=== PATIENT | male | born 1980 | race Caucasian/White ===

== ENCOUNTER 2025-01-22 14:57 | Outpatient (AMB) | payer OTHER, SELFPAY ==
--- NOTE | 2025-01-22 15:01 | A.OFFPC_ITS ---
Vital Signs 01/22/25 15:04 01/22/25 15:17 01/22/25 15:28 Height 5 ft 9 in Weight 325 lb 4 oz BMI 48.0 BP 160/81 H 133/79 130/82 Blood Pressure Location Lt brachial Lt brachial Lt brachial Position Sitting Sitting Sitting Pulse 88 Pulse Source Pulse Oximeter Temp 98.1 F Temp Source Oral Pulse Oximetry (%) 97 Oxygen Delivery Method Room Air Intake Visit Reasons: CPE Intake Note: New patient visit Automotive Services Manager Required: No Allergies No Known Allergies Allergy (Verified 01/22/25 15:16) Medication List - Last Reconciled 01/22/25 by Rola Short CNP No Known Home Meds Tobacco use date assessed: 01/22/25 Dental Screening Dental Screen Date: 01/22/25 Did you have a dental visit in the last 12 months?: No Did you have a dental problem in the last 6 months where you did not have access to dental care?: No Was dental information given to patient?: Patient declined HPI HPI Comments History of Present Illness Details 44-year-old male presents to establish c are. Prior PCP? - [facility]. Unknown practice Last office visit/CPE/labs - 15 years ago Acute issue(s) - None Past Medical History - Diverticulitis Surgical History - None Family History - Dad: Cardiovascular disease, testicula r cancer, anxiety - MGM: DM - PGM: Cardiovascular disease - MGF: DM Social History - Smokes socially, last time was 2 month s ago, h/o 1ppd x 10 yrs about 8 years ago. Does not vape. Drinks 3-4 beers three times weekly x 8 years. Denies recreational drug use - Has not been making healthy dietary ch oices. Active but does not exercise. Generally sleep well Health maintenance - Last eye exam was with DOT last month. Referred to ophthalmology for routine eye exam - Last dental visit was about10 years ag o; encouraged to schedule an appointment with his dentist for routine dental care - Last Tdap vaccine today was 4 years a go at [facility] - Has not been vaccinated for the flu ; declines vaccination [facility] Medical History (Updated 01/22/25 @ 15:53 by Rola Short CNP) Diverticulitis Family History (Updated 01/22/25 @ 15:47 by Coleen Jc MA) Father Anxiety Cardiovascular disease Testicular cancer Paternal Uncle Anxiety Family/Other Anxiety Maternal Grandmother Diabetes Maternal Grandfather Diabetes Paternal Grandmother Cardiovascular disease Social History Housing: House Alcohol intake: current Patient Tobacco Use Status: Never used Tobacco Years Smoked: 20 e-Cigarette/Vaping Use: Never Used Second Hand Smoke Exposure: No service: No Current occupational status: employed Current occupation: work formen Current occupational exposures/hazards: No Cognitive needs: No Hearing needs: Yes (right eye) Vision needs: No Questionnaire PHQ-9 Over the last 2 weeks, how often have you been bothered by any of the following problems? 1. Little interest or pleasure in doing things: not at all 2. Feeling down, depressed, or hopeless: not at all 3. Trouble falling or staying asleep, or sleeping too much: not at all 4. Feeling tired or having little energy: not at all 5. Poor appetite or overeating: not at all 6. Feeling bad about yourself - or that you are a failure or have let yourself or your family down: not at all 7. Trouble concentrating on things, such as reading the newspaper or watching television: not at all 8. Moving or speaking so slowly that other people could have noticed. Or the opposite - being so fidgety or restless that you have been moving around a lot more than usual: not at all 9. Thoughts that you would be better off or of hurting yourself in some way: not at all Total score: 0 Depression Screening Interpretation: Negative Depression Screening Done: Yes 62907 - PHQ-9 Billing: Yes Source: Developed by Drs. Isac Choi, Rafia Dotson, Tutu Umana and colleagues, with an educational charan from [employer]. Thrive Questionnaire Date Thrive assessed: 01/15/25 I am a: Patient What is your living situation today?: I have a steady place to live Within the past 12 months, did the food you bought not last and you didn't have the money to get more?: Never true Within the past 12 months, did you worry whether your food would run out before you got money to buy more?: Never true Do you have trouble paying for medicines?: No Do you have trouble getting transportation to medical appointments?: No Do you have trouble paying your heating and electricity bill?: No Do you have trouble taking care of your child, family member or friend?: No Do you have trouble with day-to-day activities such as bathing, preparing meals, shopping, managing finances, etc.?: No Are you currently unemployed and looking for a job?: No Are you interested in more education?: I choose not to answer this question Please select the resources that you would like help with: None Currently or been in a relationship where the following occur: No concerns reported THRIVE Score: 0 AUDIT C Alcohol Use Questionnaire (AUDIT-C) 1. How often do you have a drink containing alcohol?: 2-3 times a week 2. How many drinks containing alcohol do you have on a typical day when you are drinking?: 3 or 4 3. How often do you have six or more drinks on one occasion?: Monthly Total Score: 6 Score Reviewed/Action Taken: Yes MICHELA-7 AMB Questionnaire MICHELA-7 Date MICHELA - 7 assessed: 01/22/25 Feeling nervous, anxious, or on edge: 1 = Several days Not being able to stop or control worryin = Several days Worrying too much about different things: 1 = Several days Trouble relaxin = Several days Being so restless that it is hard to sit still: 0 = Not at all Becoming easily annoyed or irritable: 1 = Several days Feeling afraid as if something awful might happen: 1 = Several days Total MICHELA-7 score (0-4 normal; 5-9 mild; 10-14 moderate; 15-21 severe): 6 Source: Developed by Drs. Isac Choi, Rafia Dotson, Tutu Umana and colleagues, with an educational charan from [employer]. MICHELA-7 Assessment Billing MICHELA-7 Assessment Tool: MICHELA-7 Assessment 75721 Review of Systems Const Details: Denies chills, Denies fatigue, Denies fever(s), Denies headache(s) and Denies weakness HEENT Denies change in vision, Denies dizziness, Denies headache(s), Denies hearing loss, Denies nasal congestion, Denies sinus pain, Denies sinus pressure and Denies sore throat Card Denies chest pain, Denies lightheadedness, Denies dyspnea and Denies other (palpitations) Resp Denies cough, Denies dyspnea and Denies wheezing GI Denies abdominal pain, Denies melena, Denies hematochezia, Denies change in bowel habits, Denies dyspepsia and Denies nausea Denies hematuria and Denies dysuria Musc Denies abnormal gait, Denies myalgias, Denies arthralgias, Denies numbness and Denies tingling Skin/Breast Denies rash, Denies unusual bruising and Denies wounds Neuro Denies abnormal gait, Denies dizziness, Denies headache(s), Denies memory loss, Denies numbness, Denies Sensory deficit (Neuro), Denies tingling and Denies weakness Psych Denies anxiety, Denies depression and Denies memory loss Endo Denies cold intolerance, Denies fatigue, Denies heat intolerance, Denies polydipsia and Denies polyuria Aidan/Lymph Denies easy bleeding and Denies easy bruising Aller/Immun Denies wheezing Physical exam (Primary Care) Vital Signs: Last Vital Signs Temp 98.1 F 01/22/25 15:04 Pulse 88 01/22/25 15:04 BP 130/82 01/22/25 15:28 Pulse Ox 97 01/22/25 15:04 Oxygen Delivery Method Room Air 01/22/25 15:04 BMI result Body Mass Index 48.0 Tobacco/Smoking Status: Tobacco use Status Tobacco use date assessed 01/22/25 01/22/25 15:07 Patient Tobacco Use Status Never used Tobacco 01/22/25 15:25 e-Cigarette/Vaping Use Never Used 01/22/25 15:25 PHQ-9: PHQ-9 Score PHQ-9: Total score 0 01/22/25 15:25 Depression Screening Interpretation: Negative Thrive Assessment: Date of Thrive Assessment Date Thrive assessed 01/15/25 01/22/25 15:01 Currently or been in a relationship where the following occur: No concerns reported Const Other: General: no acute distress, well developed, alert and awake Nutritional Appearance: well nourished Orientation/consciousness: patient oriented x3 HENMT Head: Yes normocephalic and Yes atraumatic Ears: hearing grossly normal bilaterally and TM's normal bilaterally General nose exam: Normal external nose present and Normal nares present Mouth: Normal oral and palatal mucosa present and moist mucous membranes Teeth and gingiva: dentition normal Throat: Yes oropharynx normal Eyes Pupils: Equal, round and reactive pupils present and Pupil accommodation reflex normal EOM: EOMs intact bilaterally Neck Neck: Yes normal visual inspection, Yes no lymphadenopathy and Yes trachea midline Thyroid: Thyroid normal Carotids: no bruits Lymphatic: no lymphadenopathy noted Chest Chest palpation & inspection: normal inspection of the chest Resp Effort & Inspection: normal respiratory effort Auscultation: clear to auscultation bilaterally Cardio Rate: regular rate Rhythm: regular rhythm Heart sounds: S1 normal heart sound present, S2 normal heart sound present, no gallops, no murmurs and no rubs Bruits: no abdominal aortic bruits and no carotid bruits GI Palpation (GI): No Abdominal aortic bruit present, Soft to palpation, nontender, No hepatosplenomegaly present and No Rebound tenderness present Auscultation: normal bowel sounds General: Yes no CVA tenderness Back/Spine/Pelvis Back: no CVA tenderness Cervical Spine: cervical ROM normal and No Cervical spine tenderness Thoracic/Lumbar Spine: thoraco-lumbar ROM normal, No pain with thoraco-lumbar ROM, No thoracic spinal tenderness and No lumbar spinal tenderness Skin General: warm and dry. Normal skin color. Normal skin turgor Lesions: no lesions Rashes: no rashes Trauma: no lacerations or abrasions Wounds: no wounds Nails: normal Neuro General: patient oriented x3, gait normal and CN's II-XI intact bilaterally Cranial nerves: Yes Equal, round and reactive pupils present Cognition (Neuro): normal cognition Gait exam (Neuro): Normal gait present Motor exam (neuro): 5/5 motor strength present throughout Sensory Exam: No Sensory deficit (Neuro) Deep tendon reflexes (DTR's): Right patellar reflex intensity grade: 2+ and Left patellar reflex intensity grade: 2+ Extrem General: Yes normal to inspection, No edema and No calf tenderness Psych Appearance: grossly normal Affect: normal affect Attitude: cooperative Thought process: Normal thought process present Coding Level of Care Code New Pt Level 3 (22807) New Pt Prev Care 40-64y(86339) Diagnoses Normal physical examination, routine Z00.00 Morbid obesity with BMI of 45.0-49.9, adult E66.01; Z68.42 Eye exam, routine Z01.00 Alcohol use F10.90 Nicotine dependence F17.200 Laboratory tests ordered as part of a complete physical exam (CPE) Z00.00 Additional Codes MICHELA-7 Assessment Billing - MICHELA-7 Assessment Tool: MICHELA-7 Assessment 52110 ([id number]) PHQ-9 - 95503 - PHQ-9 Billing: Yes ([id number]) Assessment & Plan Assessment & Plan (1) Normal physical examination, routine: Code(s): Z00.00 - Encounter for general adult medical examination without abnormal findings Category: Medical Plan: No significant functional limitation noted. Healthy diet and routine exercise encouraged. Perform lab work and follow-up for a telehealth visit in 2-4 weeks. Return sooner with symptoms or concerns. Verbalized understanding and agreed with the plan. (2) Morbid obesity with BMI of 45.0-49.9, adult: Code(s): E66.01 - Morbid (severe) obesity due to excess calories; Z68.42 - Body mass index [BMI] 45.0-49.9, adult Category: Medical Plan: He currently weighs 325 lb, BMI is 48. He has not been making healthy dietary choices. He is active but does not exercise. Declines referral to veterinary livestock inspector/dietitian or weight management at this time. Notes that he will start making healthy dietary choices. Healthy diet and routine exercise encouraged. Follow-up as needed. Verbalized understanding and agreed with the plan. (3) Eye exam, routine: Code(s): Z01.00 - Encounter for examination of eyes and vision without abnormal findings Category: Medical Plan: Last eye exam was with DOT last month. Referred to ophthalmology for routine eye exam. (4) Alcohol use: Code(s): F10.90 - Alcohol use, unspecified, uncomplicated Category: Social Hx Plan: He drinks 3-4 beers three times weekly x 8 years. Instructed on the health risks and complications of excessive alcohol intake and encouraged to cut down or stop drinking. No more than 2 drinks daily of 5 weekly. May refer to [facility] as needed. Verbalized understanding and agreed with the plan. (5) Nicotine dependence: Code(s): F17.200 - Nicotine dependence, unspecified, uncomplicated Category: Medical Plan: He smokes socially, last time was 2 months ago, h/o 1ppd x 10 yrs about 8 years ago. Instructed on the health risks and complications of cigarette smoking and cessation encouraged. Declines nicotine treatment at this time. Follow-up as needed. Verbalized understanding and agreed with the plan. (6) Laboratory tests ordered as part of a complete physical exam (CPE): Code(s): Z00.00 - Encounter for general adult medical examination without abnormal findings Category: Medical Plan: Fasting labs ordered as part of a complete physical exam. Advised to fast for at least 10 hours before getting labs drawn. May drink water Verbalized understanding and agreed with treatment plan. Orders: Orders Complete Blood Count Auto Diff Today Z00.00 - Encounter for general adult medical examination without abnormal findings Lipid Panel Today Z00.00 - Encounter for general adult medical examination without abnormal findings PSA, Ultra Sensitive Today Z00.00 - Encounter for general adult medical examination without abnormal findings TSH reflex Free T4 Today Z00.00 - Encounter for general adult medical examination without abnormal findings Comprehensive [place]. Panel Fast Today Z00.00 - Encounter for general adult medical examination without abnormal findings Microalbumin, Random (w Creat) Today Z00.00 - Encounter for general adult medical examination without abnormal findings UA CC w/rflx Micro + Cult Today Z00.00 - Encounter for general adult medical examination without abnormal findings Vitamin D 25-OH Total Today Z00.00 - Encounter for general adult medical examination without abnormal findings Referrals Ophthalmology Referral Z01.00 - Encounter for examination of eyes and vision without abnormal findings
[2025-01-22 15:04] VITALS: BP 160/81; PULSE 88; TEMP 36.7; O2SAT 97; BMI 48.0
[2025-01-22 15:17] VITALS: BP 133/79
[2025-01-22 15:28] VITALS: BP 130/82
== END 2025-01-22 15:42 | disposition home or self-care (01) ==
LOC: HO.HMCFM 14:58
PROVIDERS: PCP Nurse Practitioner Family; Visit Provider Nurse Practitioner Family
DX: Z00.00 Encounter for general adult medical examination without abnormal findings (principal); E66.01 Morbid (severe) obesity due to excess calories; Z68.42 Body mass index [BMI] 45.0-49.9, adult; F10.90 Alcohol use, unspecified, uncomplicated; F17.200 Nicotine dependence, unspecified, uncomplicated

== ENCOUNTER → 2025-01-22 14:57 | Outpatient (BNVA) | payer OTHER, SELFPAY | PROVIDERS: PCP Nurse Practitioner Family; Visit Provider Nurse Practitioner Family | DX: Z00.00 Encounter for general adult medical examination without abnormal findings (principal); E66.01 Morbid (severe) obesity due to excess calories; F10.90 Alcohol use, unspecified, uncomplicated; F17.200 Nicotine dependence, unspecified, uncomplicated; Z68.42 Body mass index [BMI] 45.0-49.9, adult | CPT/HCPCS: 96127 ==

== ENCOUNTER 2025-01-30 06:08 | Outpatient (REF) | payer OTHER, SELFPAY ==
[2025-01-30 06:40] LABS: MANUAL DIFF FLAG NO
[2025-01-30 07:12] LABS: Hematocrit 43.9 % (42.0-52.0); Hemoglobin 14.4 g/dl (14.0-18.0); Imm Gran Abs Auto 0.05 X10*3/uL (0.00-0.03); Imm Gran Pct Auto 0.8 % (0.0-0.4); Lymphocytes Absolute Auto 2.6 X10*3/uL (1.2-4.9); Mean Corpuscular HGB Conc 32.8 g/dl (31.0-36.0); Mean Corpuscular Hemoglobin 29.6 pg (27.0-33.0); Mean Corpuscular Volume 90.1 fL (80.0-98.0); NRBC Abs Auto 0.000 X10*3/uL (0.0-0.012); NRBC Pct Auto 0.0 /100WBC (0.0-0.2); Platelet Count 230 X10*3/uL (160-400); Red Blood Count 4.87 X10*6/uL (4.60-5.80); White Blood Count 5.9 X10*3/uL (4.8-10.8)
[2025-01-30 07:29] LABS: Alanine Aminotransferase 20 U/L (0-40); Albumin Level 4.4 g/dL (3.5-5.0); Alkaline Phosphatase 88 U/L (39-117); Anion Gap 12 (12-20); Aspartate Amino Transferase 20 U/L (5-37); Blood Urea Nitrogen 13 mg/dL (9-16); Calcium 9.2 mg/dL (8.4-10.2); Carbon Dioxide 28 mmol/L (22-29); Chloride 106 mmol/L (96-108); Cholesterol 254 mg/dL (<200); Estimated Glomerular Filt Rate > 60; HDL Cholesterol 45 mg/dL (>40); Potassium 4.8 mmol/L (3.3-5.1); Sodium 141 mmol/L (135-145); Total Protein 7.4 g/dL (6.5-8.0); Triglycerides 134 mg/dL (<150)
[2025-01-30 08:02] LABS: Appearance Urine Clear; Glucose Urine UA Negative (Negative); PH 7.5 (5.0-9.0); Specific Gravity - Urine 1.020 (1.005-1.025)
[2025-02-05 22:07] LABS: PSA, Ultra Sensitive 0.39 ng/mL
== END 2025-01-30 06:09 | disposition home or self-care (01) ==
LOC: HO.LAB 06:08
PROVIDERS: PCP Nurse Practitioner Family; Visit Provider Nurse Practitioner Family
DX: Z00.00 Encounter for general adult medical examination without abnormal findings (principal)
CPT/HCPCS: 36415; 80053; 80061; 81003; 82306; 82570; 84153; 84443; 85025

== ENCOUNTER 2025-02-08 15:27 | Outpatient (AMB) | payer OTHER, SELFPAY ==
--- NOTE | 2025-02-08 14:02 | A.OFFPC_ITS ---
Intake Visit Reasons: Telehealth 2-4 wks labs review Intake Note: Dae presents for a telehealth appointment to go over his most recent lab results. Allergies No Known Allergies Allergy (Verified 02/08/25 15:23) Tobacco use date assessed: 02/08/25 Dental Screening Dental Screen Date: 02/08/25 Did you have a dental visit in the last 12 months?: No Did you have a dental problem in the last 6 months where you did not have access to dental care?: No Was dental information given to patient?: Patient has dentist HPI HPI Comments History of Present Illness Details 44-year-[place] [facility] labs results. He drinks 3-4 beers 3-4 times weekly. He offers no complaints and denies acute symptoms at this time. [facility] Medical History (Updated 02/08/25 @ 16:26 by Rola Short CNP) Diverticulitis Family History Father Anxiety Cardiovascular disease Testicular cancer Paternal Uncle Anxiety Family/Other Anxiety Maternal Grandmother Diabetes Maternal Grandfather Diabetes Paternal Grandmother Cardiovascular disease Social History (Updated 02/08/25 @ 15:24 by Jyoti Burt MA) Housing: House Alcohol intake: current Patient Tobacco Use Status: Former Tobacco user Years Smoked: 20 e-Cigarette/Vaping Use: Never Used Second Hand Smoke Exposure: No Use of substances other than those prescribed or required for medical reasons: No service: No Current occupational status: employed Current occupation: work formen Current occupational exposures/hazards: No Cognitive needs: No Hearing needs: Yes (right eye) Vision needs: No Questionnaire Thrive Questionnaire Date Thrive assessed: 01/15/25 I am a: Patient What is your living situation today?: I have a steady place to live Within the past 12 months, did the food you bought not last and you didn't have the money to get more?: Never true Within the past 12 months, did you worry whether your food would run out before you got money to buy more?: Never true Do you have trouble paying for medicines?: No Do you have trouble getting transportation to medical appointments?: No Do you have trouble paying your heating and electricity bill?: No Do you have trouble taking care of your child, family member or friend?: No Do you have trouble with day-to-day activities such as bathing, preparing meals, shopping, managing finances, etc.?: No Are you currently unemployed and looking for a job?: No Are you interested in more education?: I choose not to answer this question Please select the resources that you would like help with: None Currently or been in a relationship where the following occur: No concerns reported THRIVE Score: 0 MICHELA-7 AMB Questionnaire MICHELA-7 Date MICHELA - 7 assessed: 01/22/25 Source: Developed by Drs. Isac Choi, Rafia Dotson, Tutu Umana and colleagues, with an educational charan from [employer] Review of Systems Const Details: Denies chills, Denies fatigue, Denies fever(s), Denies headache(s) and Denies weakness Cardiac Denies chest pain, Denies claudication, Denies leg edema, Denies lightheadedness, Denies palpitations, Denies dyspnea, Denies dyspnea on exertion, Denies orthopnea and Denies other (Loss of consciousness) Resp Denies cough, Denies excessive phlegm production, Denies dyspnea, Denies dyspnea on exertion, Denies snoring and Denies wheezing Physical exam (Primary Care) Tobacco/Smoking Status: Tobacco use Status Tobacco use date assessed 02/08/25 02/08/25 15:24 Patient Tobacco Use Status Former Tobacco user 02/08/25 15:24 e-Cigarette/Vaping Use Never Used 02/08/25 15:24 Thrive Assessment: Date of Thrive Assessment Date Thrive assessed 01/15/25 02/08/25 14:02 Currently or been in a relationship where the following occur: No concerns reported Const Other: Patient is alert and oriented x 3 Telehealth Telehealth Telehealth Platform: Telephone Location of provider rendering services: practice address Location of patient: address on file Patient Identification confirmed using: Name, : Yes Telehealth method: voice only Patient verbally consented to treatment: Yes Patient verbally consented to billing insurance company: Yes Patient informed of any privacy concerns related to visit: Yes Coding Level of Care Code Tele Est Pt Level 3 (35108) Diagnoses Hypercholesterolemia E78.00 Elevated fasting glucose R73.01 Vitamin D deficiency E55.9 Time Spent (min) 15 Assessment & Plan Assessment & Plan (1) Hypercholesterolemia: Code(s): E78.00 - Pure hypercholesterolemia, unspecified Category: Medical Plan: Recent total cholesterol and LDL levels are elevated 254 and 183 respectively. Triglycerides and LDL levels are normal. He drinks 3-4 beers 3-4 times weekly. Advised to limit foods high in saturated fat and avoid foods high in trans fat. Routine exercise encouraged. Instructed on the health risks and complications of excessive alcohol intake and advised to cut down on drinking. No more than 2 drinks daily of 5 weekly. Fast for 10-12 hours, may drink water, perform lipid panel blood work 2-3 days before next visit. Follow-up for a telehealth visit in 2 months. Return sooner with symptoms or concerns. Verbalized understanding and agreed with the plan. (2) Elevated fasting glucose: Code(s): R73.01 - Impaired fasting glucose Category: Medical Plan: Recent fasting glucose is slightly elevated, 105. Healthy diet and routine exercise encouraged. Will recheck fasting glucose and make changes as needed. Verbalized understanding and agreed with the plan. (3) Vitamin D deficiency: Code(s): E55.9 - Vitamin D deficiency, unspecified Category: Medical Plan: Recent vitamin-D level is slightly low, 27.4. Vitamin D3 25 mcg daily ordered; advised to take as prescribed. Informed that the sun is a good source of vitamin D3. Will recheck vitamin-D level in 2 months. Verbalized understanding and agreed with the plan. Orders: Orders Lipid Panel 2 Months E78.00 - Pure hypercholesterolemia, unspecified Glucose Fasting 2 Months R73.01 - Impaired fasting glucose Vitamin D 25-OH Total 2 Months E55.9 - Vitamin D deficiency, unspecified Medications: New cholecalciferol (vitamin D3) 25 mcg PO DAILY 90 tabs 3RF 90 days
== END 2025-02-08 15:49 | disposition home or self-care (01) ==
LOC: HO.HMCFM 15:27
PROVIDERS: PCP Nurse Practitioner Family; Visit Provider Nurse Practitioner Family
DX: E78.00 Pure hypercholesterolemia, unspecified (principal); R73.01 Impaired fasting glucose; E55.9 Vitamin D deficiency, unspecified

== ENCOUNTER 2025-04-18 06:03 | Outpatient (REF) | payer OTHER, SELFPAY ==
[2025-04-18 07:57] LABS: Cholesterol 264 mg/dL (<200); HDL Cholesterol 47 mg/dL (>40); Triglycerides 140 mg/dL (<150)
== END 2025-04-18 06:04 | disposition home or self-care (01) ==
LOC: HO.LAB 06:03
PROVIDERS: PCP Nurse Practitioner Family; Visit Provider Nurse Practitioner Family
DX: R73.01 Impaired fasting glucose (principal); E78.00 Pure hypercholesterolemia, unspecified; E55.9 Vitamin D deficiency, unspecified
CPT/HCPCS: 36415; 80061; 82306; 82947

== ENCOUNTER 2025-04-23 13:28 | Outpatient (AMB) | payer OTHER, SELFPAY ==
--- NOTE | 2025-04-23 13:22 | A.OFFPC_ITS ---
Intake Visit Reasons: 2 mos Tele high chol, elevated fbs, vit d def Intake Note: patient here for 2 month telehealth follow up for high cholesterol, elevated fasting glucose and Vit D def. Hot Kettle Tender Required: No Allergies No Known Allergies Allergy (Verified 04/23/25 13:22) Tobacco use date assessed: 04/23/25 Dental Screening Dental Screen Date: 04/23/25 Did you have a dental visit in the last 12 months?: No Did you have a dental problem in the last 6 months where you did not have access to dental care?: No Was dental information given to patient?: No HPI HPI Comments History of Present Illness Details 44-year-old [facility] hypercholesterolemia, elevated fasting glucose, and vitamin-D deficiency. He continues to eat processed foods. He walks regularly. He cut down his alcohol intake to 2-3 shots of vodka/mixed drinks or 3-4 beers 1 day weekly. No acute symptoms at this time. [facility] Medical History (Updated 02/08/25 @ 16:26 by Rola Short CNP) Diverticulitis Family History Father Anxiety Cardiovascular disease Testicular cancer Paternal Uncle Anxiety Family/Other Anxiety Maternal Grandmother Diabetes Maternal Grandfather Diabetes Paternal Grandmother Cardiovascular disease Social History (Updated 02/08/25 @ 15:24 by Jyoti Burt MA) Housing: House Alcohol intake: current Patient Tobacco Use Status: Former Tobacco user Years Smoked: 20 e-Cigarette/Vaping Use: Never Used Second Hand Smoke Exposure: No service: No Current occupational status: employed Current occupation: work formen Current occupational exposures/hazards: No Cognitive needs: No Hearing needs: Yes (right eye) Vision needs: No Questionnaire Thrive Questionnaire Date Thrive assessed: 01/15/25 MICHELA-7 AMB Questionnaire MICHELA-7 Date MICHELA - 7 assessed: 01/22/25 Source: Developed by Drs. Isac Choi, Rafia Dotson, Tutu Umana and colleagues, with an educational charan from [employer]. Review of Systems Const Details: Denies chills, Denies fatigue, Denies fever(s), Denies headache(s) and Denies weakness Cardiac Denies chest pain, Denies claudication, Denies leg edema, Denies lightheadedness, Denies palpitations, Denies dyspnea, Denies dyspnea on exertion, Denies orthopnea and Denies other (Loss of consciousness) Resp Denies cough, Denies excessive phlegm production, Denies dyspnea, Denies dyspnea on exertion, Denies snoring and Denies wheezing Physical exam (Primary Care) Tobacco/Smoking Status: Tobacco use Status Tobacco use date assessed 04/23/25 04/23/25 13:23 Patient Tobacco Use Status Former Tobacco user 04/23/25 13:23 e-Cigarette/Vaping Use Never Used 04/23/25 13:23 Thrive Assessment: Date of Thrive Assessment Date Thrive assessed 01/15/25 04/23/25 13:23 Const Other: Patient is alert and oriented x3 Telehealth Telehealth Telehealth Platform: Telephone Location of provider rendering services: practice address Location of patient: address on file Patient Identification confirmed using: Name, : Yes Telehealth method: voice only Patient verbally consented to treatment: Yes Patient verbally consented to billing insurance company: Yes Patient informed of any privacy concerns related to visit: Yes Coding Level of Care Code Tele Est Pt Level 3 (10254) Diagnoses Hypercholesterolemia E78.00 Elevated fasting glucose R73.01 Vitamin D deficiency E55.9 Time Spent (min) 15 Assessment & Plan Assessment & Plan (1) Hypercholesterolemia: Code(s): E78.00 - Pure hypercholesterolemia, unspecified Category: Medical Plan: Recent total cholesterol and LDL levels are elevated, 264 and 189 respectively, previous levels were 254 and 183 respectively. Triglycerides and HDL levels are normal. He consumes significant amount of processed foods. Declines medication treatment for cholesterol management at this time. He wants to make lifestyle changes and follow-up in 3 months. Advised to limit foods high in saturated fat and avoid foods high in trans fat. Continue cut down or avoid alcohol intake. Routine exercise encouraged. Fast for 10-12 hours, may drink water, and perform lipid panel blood work a few days before next visit. Follow-up for telehealth visit in 3 months. Return sooner with symptoms or concerns. Verbalized understanding and agreed with the plan. (2) Elevated fasting glucose: Code(s): R73.01 - Impaired fasting glucose Category: Medical Plan: Recent fasting glucose is normal, 94. Will monitor fasting glucose annually or as needed. (3) Vitamin D deficiency: Code(s): E55.9 - Vitamin D deficiency, unspecified Category: Medical Plan: Recent vitamin-D level is normal, 32.1. Continue to take vitamin D3 25 mcg daily. Will monitor vitamin-D level as needed. Verbalized understanding and agreed with the plan. Orders: Orders Lipid Panel 3 Months E78.00 - Pure hypercholesterolemia, unspecified
== END 2025-04-23 15:46 | disposition home or self-care (01) ==
LOC: HO.HMCFM 13:29
PROVIDERS: PCP Nurse Practitioner Family; Visit Provider Nurse Practitioner Family
DX: E78.00 Pure hypercholesterolemia, unspecified (principal); R73.01 Impaired fasting glucose; E55.9 Vitamin D deficiency, unspecified